=== PATIENT | male | born 1995 | race Caucasian/White ===

== ENCOUNTER 2023-07-23 04:24 | Emergency (ER) | payer SELFPAY ==
[~2023-07-23] VITALS: Ht 185.4 cm; Wt 81.6 kg
[2023-07-23 04:56] VITALS: BP 137/87; PULSE 110; RESP 18; TEMP 99.2; O2SAT 98
== END 2023-07-23 05:00 ==
LOC: MED 04:24
DX: V49.88XA Car occupant (driver) (passenger) injured in other specified transport accidents, initial encounter; Y93.89 Activity, other specified; Y92.89 Other specified places as the place of occurrence of the external cause; Y99.8 Other external cause status
CPT/HCPCS: 99283